=== PATIENT | female | born 1970 ===

== ENCOUNTER 2017-09-17 06:49 | Day surgery (SDC) | payer OTHER ==
[2017-09-17] MEDS ORDERED: Lactated Ringer's 500 ML IV ONE (07:55)
--- NOTE | 2017-09-17 07:57 | CP.SDSHP ---
Same Day Surgery H & P - History Proposed Procedure: EGD Pre-Op Diagnosis: epigastric pain. heartburn - Previous Medical/Surgical History Cardiac: Hypertension Endocrine/Metabolic: Obesity Misc: Other (GB polyps, GERD) Previous Surgical History: - Allergies Allergies: Allergies No Known Allergies Allergy (Verified 04/26/16 09:45) - Physical Exam Vital Signs: Vital Signs 09/17/17 07:04 Temperature 98.4 F Pulse Rate 75 Respiratory 18 Rate Blood Pressure 105/65 O2 Sat by Pulse 98 Oximetry Mental Status: Alert & Oriented x3 Neuro: WNL Heart: WNL Lungs: WNL GI: WNL - Impression Impression: epigastric pain. heartburn refractory to therapy Short Stay Discharge - Short Stay Discharge Admitting Diagnosis/Reason for Visit: HEARTBURN / EPIGASTRIC PAIN Disposition: HOME/ ROUTINE
[2017-09-17] MEDS ORDERED: Pantoprazole 40 mg EC Tab PO ONE (08:00)
[2017-09-17] MEDS ORDERED: Propofol 10 mg/ml Inj (20 ML) ONE (08:00)
[2017-09-17 08:32] VITALS: TEMP 98
[2017-09-17 09:29] VITALS: BP 95/53; PULSE 65; RESP 16; O2SAT 99
== END 2017-09-17 09:20 | disposition home or self-care (01) ==
LOC: C.ENDO 06:49
PROVIDERS: ATTEND Internal Medicine Gastroenterology
DX: K21.9 Gastro-esophageal reflux disease without esophagitis (principal); E66.9 Obesity, unspecified; I10 Essential (primary) hypertension; K29.50 Unspecified chronic gastritis without bleeding
CPT/HCPCS: 43239; 84703; 88305; J2001; J2704; J7120

== ENCOUNTER 2018-05-16 15:30 | Outpatient (CLI) | payer OTHER | END 2018-05-16 15:31 | disposition home or self-care (01) | LOC: C.USIC 15:30 | DX: N73.0 Acute parametritis and pelvic cellulitis (principal); Z12.31 Encounter for screening mammogram for malignant neoplasm of breast ==